=== PATIENT | female | born 2000 | race Caucasian/White ===

== ENCOUNTER 2024-08-09 11:43 | Day surgery (SDC) | payer BC ==
[~2024-08-09] VITALS: Ht 154.9 cm; Wt 57.6 kg
[2024-08-09 12:41] LABS: HCG,QUAL RESULT NEGATIVE (NEGATIVE)
[2024-08-09] MEDS ORDERED: ACETAMINOPHEN I.V. 1000 MG 100 ML IV ONE (12:41)
[2024-08-09] MEDS ORDERED: METOCLOPRAMIDE HCL 10 MG/2 ML VIAL IVP PRN (13:30)
[2024-08-09] MEDS ORDERED: LR 1,000 ML IV SCH (13:30)
[2024-08-09] MEDS ORDERED: LABETALOL 100 MG/ 20ML VIAL IVP PRN (13:30)
[2024-08-09] MEDS ORDERED: MIDAZOLAM HCL 2 MG/2 ML VIAL (VERSED) IVP PRN (13:30)
[2024-08-09] MEDS ORDERED: MEPERIDINE HCL/PF 25 MG/ML DISP.SYRIN IVP PRN (13:30)
[2024-08-09] MEDS ORDERED: hydrALAZINE HCL 20 MG/ML VIAL IVP PRN (13:30)
[2024-08-09] MEDS ORDERED: HYDROmorphone 1 MG/ML INJ. CARTRIDGE IVP PRN ×2 (13:30)
[2024-08-09 14:02] VITALS: O2SAT 99
[2024-08-09] MEDS ORDERED: WATER FOR IRRIGATION,STERILE 1,000 ML IRRIG.SOLN IR ONE (14:33)
[2024-08-09] MEDS ORDERED: PROPOFOL 200MG/ 20ML VIAL (DIPRIVAN) IV ONE (14:33)
[2024-08-09] MEDS ORDERED: MUPIROCIN 2% TOPICAL OINTMENT 22 GM ONE (14:33)
[2024-08-09] MEDS ORDERED: KETOROLAC TROMETHAMINE 30 MG VIAL ONE (14:33)
[2024-08-09] MEDS ORDERED: ONDANSETRON HCL 4 MG/2 ML VIAL ONE (14:33)
[2024-08-09] MEDS ORDERED: fentaNYL CITRATE/PF 100 MCG/2 ML AMP ONE (14:33)
[2024-08-09] MEDS ORDERED: MIDAZOLAM HCL 2 MG/2 ML VIAL (VERSED) ONE (14:33)
[2024-08-09] MEDS ORDERED: NS 1000 ML IV.SOLN IV ONE (14:33)
[2024-08-09] MEDS ORDERED: LIDOCAINE/EPI 1% 1:100000 20 ML VIAL ONE (14:33)
[2024-08-09] MEDS ORDERED: NS IRRIG SOLN 1000 ML IR ONE (14:33)
[2024-08-09] MEDS ORDERED: LR 1,000 ML IV.SOLN IV ONE (14:33)
[2024-08-09] MEDS ORDERED: ROCURONIUM BROMIDE 10 MG/ML (ZEMURON) ONE (14:33)
[2024-08-09] MEDS ORDERED: SUGAMMADEX SODIUM 200 MG/2 ML VIAL IV ONE (14:33)
[2024-08-09 17:55] VITALS: BP_SYST 122; PULSE 76; RESP 20
== END 2024-08-09 16:50 | disposition home or self-care (01) ==
LOC: SDS 11:43 → SMU 11:47 → SDS 16:50
PROVIDERS: ATTEND Otolaryngology
DX: J34.89 Other specified disorders of nose and nasal sinuses (principal); D38.5 Neoplasm of uncertain behavior of other respiratory organs; J34.2 Deviated nasal septum
CPT/HCPCS: 30520; 30140; 31240; 84703; 88304; J3490; J1885; J2250; J2405; J2704; J3010; J7120; J7030; J0131; 88311